=== PATIENT | male | born 1970 | race Caucasian/White ===

== ENCOUNTER 2016-10-08 16:48 | Inpatient (IN) | payer OTHER ==
[2016-10-08 19:12] VITALS: BMI 19.5
--- NOTE | 2016-10-08 23:36 | HP ---
COWS - Scale Resting Pulse: 0= [place] 80 or Below Sweatin= Chills/Flushing Restless Observation: 3= Extraneous Movement Pupil Size: 0= Normal to Room Light Bone or Joint Aches: 2= Severe Diffuse Aches Runny Nose/ Eye Tearin= Runny Nose/Eyes GI Upset > 30mins: 1= Stomach Cramp Tremor Observation: 2= Slight Tremor Visible Yawning Observation: 1= 1-2x During Session Anxiety or Irritability: 2=Irritable/Anxious Goose Flesh Skin: 3=Piloerection COWS Score: 17 Admission ROS S - HPI Chief Complaint: WITHDRAWAL SYMPTOMS Allergies/Adverse Reactions: Allergies Allergy/AdvReac Type Severity Reaction Status Date / Time No Known Allergies Allergy Verified 10/08/16 23:33 History of Present Illness: 46 Y.O. MAN WITH A 10 YEAR HISTORY OF DRUG DEPENDENCE IS SEEKING DETOX. HE REPORTS HE HAS NEVER SOUGHT TREATMENT AND HIS ONLY PERIOD OF SOBRIETY WAS FOR 2 YEARS WHEN HE WAS INCARCERATED. Exam Limitations: No Limitations - Ebola screening Have you traveled outside of the country in the last 21 days: No Have you had contact with anyone from an Ebola affected area: No Have you been sick,other than usual withdrawal symptoms: No Do you have a fever: No - Review of Systems Constitutional: Loss of Appetite, Night Sweats, Changes in sleep, Unintentional Wgt. Loss EENT: reports: Blurred Vision, Double Vision, Nose Congestion Respiratory: reports: No Symptoms reported Cardiac: reports: No Symptoms Reported GI: reports: Constipated, Poor Appetite : reports: No Symptoms Reported Musculoskeletal: reports: Back Pain, Muscle Pain, Muscle Weakness Integumentary: reports: Other (SURGICAL SCAR TO MIDLINE BACK) Neuro: reports: Numbness, Tingling, Tremors Endocrine: reports: No Symptoms Reported Hematology: reports: No Symptoms Reported Psychiatric: reports: Orientated x3 Other Systems: Reviewed and Negative Patient History - Patient Medical History Hx Anemia: No Hx Asthma: No Hx Chronic Obstructive Pulmonary Disease (COPD): No Hx Cancer: No Hx Cardiac Disorders: No Hx Congestive Heart Failure: No Hx Hypertension: No Hx Hypercholesterolemia: No Hx Pacemaker: No HX Cerebrovascular Accident: No Hx Seizures: No Hx Dementia: No Hx Diabetes: No Hx Gastrointestinal Disorders: No Hx Liver Disease: No Hx Genitourinary Disorders: No Hx Sexually Transmitted Disorders: No Hx Renal Disease (ESRD): No Hx Thyroid Disease: No Hx Human Immunodeficiency Virus (HIV): Yes (NOT ON MEDS ) Hx Hepatitis C: Yes (COMPLETED [place] ) Hx Depression: No Hx Suicide Attempt: No Hx Bipolar Disorder: No Hx Schizophrenia: No - Patient Surgical History Past Surgical History: Yes Hx Neurologic Surgery: No Hx Cataract Extraction: No Hx Cardiac Surgery: No Hx Lung Surgery: No Hx Breast Surgery: No Hx Breast Biopsy: No Hx Abdominal Surgery: No Hx Appendectomy: No Hx Cholecystectomy: No Hx Genitourinary Surgery: No Hx Section: No Hx Orthopedic Surgery: Yes (RODS AND SCREWS TO LUMBAR SPINE) Hx Hysterectomy: No Anesthesia Reaction: No - PPD History Previous Implant?: Yes Documented Results: Negative w/o proof Implanted On Prior [facility] Admission?: No PPD to be Administered?: Yes - Reproductive History Patient is a Female of Child Bearing Age (11 -55 yrs old): No - Smoking Cessation Smoking history: Current every day smoker Have you smoked in the past 12 months: Yes Aproximately how many cigarettes per day: 40 Hx Chewing Tobacco Use: No Initiated information on smoking cessation: Yes 'Breaking Loose' booklet given: 10/08/16 - Substance & Tx. History Hx Alcohol Use: No Hx Substance Use: Yes Substance Use Type: Heroin Hx Substance Use Treatment: No - Substances Abused Heroin Route: Injection Frequency: Daily Amount used: 20 BAGS Age of first use: 34 Date of Last Use: 10/08/16 Family Disease History - Family Disease History Family Disease History: CA: Mother ( ) Admission Physical Exam BHS - Vital Signs Vital Signs: Vital Signs - 24 hr 10/08/16 19:10 Temperature 96.3 F L Pulse Rate 78 Respiratory 18 Rate Blood Pressure 111/63 - Physical General Appearance: Yes: Thin, Tremorous, Anxious HEENTM: Yes: Hearing grossly Normal, Normal ENT Inspection, Normocephalic, Normal Voice Respiratory: Yes: Chest Non-Tender, Lungs Clear, Normal Breath Sounds, No Respiratory Distress, No Accessory Muscle Use Neck: Yes: No masses,lesions,Nodules, Trachea in good position Breast: Yes: Breast Exam Deferred Cardiology: Yes: Regular Rhythm, Regular Rate, S1, S2 Abdominal: Yes: Normal Bowel Sounds, Non Tender, Flat, Soft Genitourinary: Yes: Within Normal Limits Back: Yes: Surgical Scar (MIDLINE BACK) Musculoskeletal: Yes: Back pain, Joint Stiffness, Joint swelling, Muscle Pain, Muscle weakness Extremities: Yes: Normal Inspection, Normal Range of Motion Neurological: Yes: Alert, Normal Mood/Affect, Normal Response Integumentary: Yes: Normal Color, Dry, Warm Lymphatic: Yes: Within Normal Limits - Diagnostic (1) Opioid dependence with withdrawal Current Visit: Yes Status: Chronic (2) HIV (human immunodeficiency virus infection) Current Visit: Yes Status: Chronic (3) Malnutrition Current Visit: Yes Status: Chronic Cleared for Admission [facility] - Detox or Rehab [facility] Level of Care: Medically Managed Detox Regimen/Protocol: Methadone [facility] Breath Alcohol Content Breath Alcohol Content: 0 Urine Drug Screen - Results Drug Screen Negative: No Urine Drug Screen Results: MEENA-Cocaine, OPI-Opiates
[2016-10-08] MEDS ORDERED: NICOTINE POLACRILEX 4 MG GUM BUC PRN (23:45)
[2016-10-08] MEDS ORDERED: MAG HYDROX/AL HYDROX/SIMETH 30 ML UNIT-DOSE CUP PO PRN (23:45)
[2016-10-08] MEDS ORDERED: IBUPROFEN 400 MG TABLET (FP) PO PRN (23:45)
[2016-10-08] MEDS ORDERED: hydrOXYzine PAMOATE 50 MG CAPSULE (FP) PO PRN (23:45)
[2016-10-08] MEDS ORDERED: MAGNESIUM CITRATE 300 ML BOTTLE PO PRN (23:45)
[2016-10-08] MEDS ORDERED: MAGNESIUM HYDROX 2400MG/30ML ORAL SUSPENSION 30 ML CUP PO PRN (23:45)
[2016-10-08] MEDS ORDERED: LOPERAMIDE HCL 2 MG CAPSULE PO PRN (23:45)
[2016-10-08] MEDS ORDERED: diphenhydrAMINE HCL 50 MG CAPSULE PO PRN (23:45)
[2016-10-08] MEDS ORDERED: ACETAMINOPHEN 325 MG TABLET (FP) PO PRN (23:45)
[2016-10-08] MEDS ORDERED: guaiFENesin/D-METHORPHAN HB 10 ML UNIT-DOSE CUPS PO PRN (23:45)
[2016-10-08] MEDS ORDERED: P-EPHED 60MG/TRIPROLIDI 2.5MG TABLET PO PRN (23:45)
[2016-10-08] MEDS ORDERED: MENTHOL/PHENOL 1 EACH UD MM PRN (23:45)
[2016-10-09] MEDS ORDERED: METHADONE HCL 10 MG TABLET (FOR DETOX USE ONLY) PO ONE ×3 (00:01→23:00)
[2016-10-09] MEDS: diazePAM 5 MG TABLET PO PRN ×2 (01:54→10:39)
[2016-10-09] MEDS: NICOTINE 21 MG/24 HOURS TOPICAL PATCH TD SCH (10:40)
[2016-10-09] MEDS: PRENATAL VITAMINS W/ FOLIC ACID TABLET (FP) PO SCH (10:40)
[2016-10-09 10:47] LABS: MCH 26.9 pg (25.7-33.7); MCHC 33.4 g/dl (32.0-35.9); MEAN CELL VOLUME 80.6 fl (80-96); MEAN PLT VOLUME 8.9 fl (7.5-11.1); PLATELET COUNT 162 K/MM3 (134-434); RDW 15.3 % (11.9-15.9); WHITE BLOOD COUNT 4.4 K/mm3 (4.0-10.0)
[2016-10-09 11:03] LABS: ALBUMIN 2.8 g/dl (3.4-5.0); ALK PHOS 66 U/L (45-117); ANION GAP 10 (8-16); BILIRUBIN,TOTAL 0.5 mg/dL (0.2-1.0); CALCIUM 8.7 mg/dL (8.5-10.1); CO2 28 mmol/L (21-32); CREATININE 0.7 mg/dL (0.7-1.3); GLUCOSE,RANDOM 92 mg/dL (74-106); SGOT/AST 24 U/L (15-37); SGPT/ALT 23 U/L (12-78); TOT PROT 6.9 g/dl (6.4-8.2)
--- NOTE | 2016-10-09 11:35 | PN ---
BHS COWS - Scale Resting Pulse: 1= [place] 81-100 Sweatin= Chills/Flushing Restless Observation: 1= Difficult to Sit Still Pupil Size: 1= Pupils >than Normal Bone or Joint Aches: 1= Mild Discomfort Runny Nose/ Eye Tearin= Nasal Congestion GI Upset > 30mins: 2= Nausea/Diarrhea Tremor Observation of Outstretched Hands: 2= Slight Tremor Visible Yawning Observation: 1= 1-2x During Session Anxiety or Irritability: 2=Irritable/Anxious Goose Flesh Skin: 3=Piloerection COWS Score: 16 BHS Progress Note (SOAP) Subjective: nasuea, sweats, interrupted sleep, anxiety, tremors Objective: 10/09/16 11:34 Vital Signs - 24 hr 10/08/16 10/09/16 19:10 03:30 Temperature 96.3 F L Pulse Rate 78 Respiratory 18 18 Rate Blood Pressure 111/63 Laboratory Tests 10/09/16 10/09/16 08:00 08:00 WBC 4.4 RBC 4.93 Hgb 13.3 Hct 39.7 MCV 80.6 MCHC 33.4 RDW 15.3 Plt Count 162 MPV 8.9 Sodium 140 Potassium 4.1 Chloride 102 Carbon Dioxide 28 Anion Gap 10 BUN 18 Creatinine 0.7 Creat Clearance w eGFR > 60 Random Glucose 92 Calcium 8.7 Total Bilirubin 0.5 AST 24 ALT 23 Alkaline Phosphatase 66 Total Protein 6.9 Albumin 2.8 L Assessment: 10/09/16 11:34 withdasia sx Plan: cont detox, fluids, encourage ambualtion
--- NOTE | 2016-10-09 14:39 | CONSULT ---
[facility] Psychiatric Consult - Data Date of interview: 10/09/16 Admission source: [facility] Identifying data: First admission to [facility] for this 46 y/o male seeking detox treatment on for heroin and cocaine dependence.Patient is single,a father of one,homeless,unemployed and supported on welfare. Substance Abuse History: - Smoking Cessation. Smoking history: Current every day smoker. Have you smoked in the past 12 months: Yes. Aproximately how many cigarettes per day: 40. Hx Chewing Tobacco Use: No. Initiated information on smoking cessation: Yes. 'Breaking Loose' booklet given: 10/08/16. - Substance & Tx. History. Hx Alcohol Use: No. Hx Substance Use: Yes. Substance Use Type : Heroin. Hx Substance Use Treatment: No. - Substances Abused. Heroin. Route: Injection. Frequency: Daily. Amount used: 20 BAGS. Age of first use: 34. Date of Last Use: 10/08/16. Confirmed by patient in this interview. Medical History: HIV infection,hepatitis C,spinal fusion and low back pain. Psychiatric History: Patient denies. Physical/Sexual Abuse/Trauma History: Patient denies. Additional Comment: Urine Drug Screen Results: MEENA-Cocaine, OPI-Opiates.Noted. Mental Status Exam - Mental Status Exam Alert and Oriented to: Time, Place, Person Cognitive Function: Grossly Intact Patient Appearance: Unkempt, Disheveled Mood: Withdrawn Affect: Mood Congruent Patient Behavior: Fatigued, Appropriate, Cooperative Speech Pattern: Clear Voice Loudness: Normal Thought Process: Goal Oriented Thought Disorder: Not Present Hallucinations: Denies Suicidal Ideation: Denies Homicidal Ideation: Denies Insight/Judgement: Poor Sleep: Fair Appetite: Poor, Weight loss Muscle strength/Tone: Normal Gait/Station: Normal Psychiatric Findings - Problem List ([place] 1, 2,3) (1) Opioid dependence with withdrawal Current Visit: Yes Status: Acute (2) Cocaine dependence Current Visit: Yes Status: Acute (3) Nicotine dependence Current Visit: Yes Status: Acute (4) HIV (human immunodeficiency virus infection) Current Visit: Yes Status: Chronic (5) Malnutrition Current Visit: Yes Status: Chronic - Initial Treatment Plan Initial Treatment Plan: Psychoeducation.Detoxification.Observation.
--- NOTE | 2016-10-09 18:20 | EKG ---
Test Reason : Blood Pressure : / mmHG Vent. Rate : 066 BPM Atrial Rate : 066 BPM P-R Int : 112 ms QRS Dur : 090 ms QT Int : 404 ms P-R-T Axes : 050 088 069 degrees QTc Int : 423 ms NORMAL SINUS RHYTHM WITH SHORT NH NO PREVIOUS ECGS AVAILABLE Confirmed by LATONIA PELAYO MD ([id number]) on 10/09/2016 6:20:00 PM Referred By: Jewel Nicole Confirmed By:LATONIA PLEAYO MD
[2016-10-09] MEDS: THIAMINE HCL 100 MG TABLET (FP) PO SCH (22:46)
[2016-10-10] MEDS: diazePAM 5 MG TABLET PO PRN ×2 (09:35→22:28)
[2016-10-10] MEDS: NICOTINE 21 MG/24 HOURS TOPICAL PATCH TD SCH (09:35)
[2016-10-10] MEDS: PRENATAL VITAMINS W/ FOLIC ACID TABLET (FP) PO SCH (09:35)
[2016-10-10] MEDS ORDERED: METHADONE HCL 10 MG TABLET (FOR DETOX USE ONLY) PO ONE (10:00)
[2016-10-10 13:43] LABS: URINE APPEARANCE CLEAR; URINE BILIRUBIN NEGATIVE (NEGATIVE); URINE COLOR LTYELLOW; URINE GLUCOSE (UA) NEGATIVE (NEGATIVE); URINE KETONE NEGATIVE (NEGATIVE); URINE LEUK ESTERASE NEGATIVE (NEGATIVE); URINE NITRITE NEGATIVE (NEGATIVE); URINE PROTEIN NEGATIVE (NEGATIVE); URINE UROBILINOGEN NEGATIVE E.U./dl (0.2-1.0)
[2016-10-10 13:50] LABS: URINE BLOOD 1+ (NEGATIVE)
[2016-10-10 13:55] LABS: URINE BACTERIA RARE /hpf (NONE SEEN); URINE MUCUS RARE; URINE RBC 2 /hpf (0-3); URINE WBC 1 /hpf (3-5)
--- NOTE | 2016-10-10 14:15 | PN ---
BHS COWS - Scale Resting Pulse: 0= [place] 80 or Below Sweatin= Chills/Flushing Restless Observation: 3= Extraneous Movement Pupil Size: 0= Normal to Room Light Bone or Joint Aches: 2= Severe Diffuse Aches Runny Nose/ Eye Tearin= Runny Nose/Eyes GI Upset > 30mins: 3= Vomiting/Diarrhea Tremor Observation of Outstretched Hands: 2= Slight Tremor Visible Yawning Observation: 0= None Anxiety or Irritability: 2=Irritable/Anxious Goose Flesh Skin: 0=Smooth Skin COWS Score: 15 BHS Progress Note (SOAP) Subjective: Sweating, interrupted sleep, nausea, diarrhea, chills, tremor Objective: 10/10/16 14:12 Last Vital Signs Temp Pulse Resp BP Pulse Ox 96.6 F L 102 H 18 119/74 10/10/16 09:35 10/10/16 09:35 10/10/16 09:35 10/10/16 09:35 Laboratory Tests 10/09/16 10/09/16 10/09/16 08:00 08:00 08:00 WBC 4.4 RBC 4.93 Hgb 13.3 Hct 39.7 MCV 80.6 MCHC 33.4 RDW 15.3 Plt Count 162 MPV 8.9 Sodium 140 Potassium 4.1 Chloride 102 Carbon Dioxide 28 Anion Gap 10 BUN 18 Creatinine 0.7 Creat Clearance w eGFR > 60 Random Glucose 92 Calcium 8.7 Total Bilirubin 0.5 AST 24 ALT 23 Alkaline Phosphatase 66 Total Protein 6.9 Albumin 2.8 L Urine Color Urine Appearance Urine pH Ur Specific [place] Urine Protein Urine Glucose (UA) Urine Ketones Urine Blood Urine Nitrite Urine Bilirubin Urine Urobilinogen Ur Leukocyte Esterase Urine RBC Urine WBC Urine Bacteria Urine Mucus RPR Titer Nonreactive 10/10/16 13:15 WBC RBC Hgb Hct MCV MCHC RDW Plt Count MPV Sodium Potassium Chloride Carbon Dioxide Anion Gap BUN Creatinine Creat Clearance w eGFR Random Glucose Calcium Total Bilirubin AST ALT Alkaline Phosphatase Total Protein Albumin Urine Color Ltyellow Urine Appearance Clear Urine pH 8.0 Ur Specific [place] 1.005 Urine Protein Negative Urine Glucose (UA) Negative Urine Ketones Negative Urine Blood 1+ H Urine Nitrite Negative Urine Bilirubin Negative Urine Urobilinogen Negative Ur Leukocyte Esterase Negative Urine RBC 2 Urine WBC 1 Urine Bacteria Rare Urine Mucus Rare RPR Titer Labs noted: UA 1+ blood, RBC 2 Assessment: 10/10/16 14:13 Withdrawal symptoms Noted with microscopic hematuria Plan: Continue detox, vistaril 50mg PO qhs prn sleep ordered as patient stated vistaril helps with interrupted sleep Microscopic hematuria: encouraged to drink lots of water, will repeat UA
[2016-10-10] MEDS ORDERED: hydrOXYzine PAMOATE 50 MG CAPSULE (FP) PO PRN (22:00)
[2016-10-10] MEDS ORDERED: hydrOXYzine HCL 25 MG TABLET (FP) PO PRN (22:00)
[2016-10-10] MEDS: THIAMINE HCL 100 MG TABLET (FP) PO SCH (22:29)
[2016-10-11] MEDS: diazePAM 5 MG TABLET PO PRN ×4 (05:55→22:38)
[2016-10-11] MEDS ORDERED: METHADONE HCL 5 MG TABLET (FOR DETOX USE ONLY) PO ONE (10:00)
[2016-10-11] MEDS: PRENATAL VITAMINS W/ FOLIC ACID TABLET (FP) PO SCH (10:24)
[2016-10-11] MEDS: NICOTINE 21 MG/24 HOURS TOPICAL PATCH TD SCH (10:47)
--- NOTE | 2016-10-11 13:56 | PN ---
BHS Progress Note (SOAP) Subjective: Tremors, Interrupted sleep, Body Aches, Stomach cramping, Vomiting, Sweating. Objective: PT. A & O X 3, OBSERVED AMBULATING ON UNIT. 10/11/16 13:54 Vital Signs Temperature 96.9 F L 10/11/16 13:22 Pulse Rate 100 H 10/11/16 13:22 Respiratory Rate 20 10/11/16 13:22 Blood Pressure 102/67 10/11/16 13:22 O2 Sat by Pulse Oximetry (%) Laboratory Last Values WBC 4.4 K/mm3 (4.0-10.0) 10/09/16 08:00 RBC 4.93 M/mm3 (4.00-5.60) 10/09/16 08:00 Hgb 13.3 GM/dL (11.7-16.9) 10/09/16 08:00 Hct 39.7 % (35.4-49) 10/09/16 08:00 MCV 80.6 fl (80-96) 10/09/16 08:00 MCHC 33.4 g/dl (32.0-35.9) 10/09/16 08:00 RDW 15.3 % (11.9-15.9) 10/09/16 08:00 Plt Count 162 K/MM3 (134-434) 10/09/16 08:00 MPV 8.9 fl (7.5-11.1) 10/09/16 08:00 Sodium 140 mmol/L (136-145) 10/09/16 08:00 Potassium 4.1 mmol/L (3.5-5.1) 10/09/16 08:00 Chloride 102 mmol/L (98-107) 10/09/16 08:00 Carbon Dioxide 28 mmol/L (21-32) 10/09/16 08:00 Anion Gap 10 (8-16) 10/09/16 08:00 BUN 18 mg/dL (7-18) 10/09/16 08:00 Creatinine 0.7 mg/dL (0.7-1.3) 10/09/16 08:00 Creat Clearance w eGFR > 60 (>60) 10/09/16 08:00 Random Glucose 92 mg/dL (74-106) 10/09/16 08:00 Calcium 8.7 mg/dL (8.5-10.1) 10/09/16 08:00 Total Bilirubin 0.5 mg/dL (0.2-1.0) 10/09/16 08:00 AST 24 U/L (15-37) 10/09/16 08:00 ALT 23 U/L (12-78) 10/09/16 08:00 Alkaline Phosphatase 66 U/L (45-117) 10/09/16 08:00 Total Protein 6.9 g/dl (6.4-8.2) 10/09/16 08:00 Albumin 2.8 g/dl (3.4-5.0) L 10/09/16 08:00 Urine Color Ltyellow 10/10/16 13:15 Urine Appearance Clear 10/10/16 13:15 Urine pH 8.0 (5.0-8.0) 10/10/16 13:15 Ur Specific [place] 1.005 (1.001-1.035) 10/10/16 13:15 Urine Protein Negative (NEGATIVE) 10/10/16 13:15 Urine Glucose (UA) Negative (NEGATIVE) 10/10/16 13:15 Urine Ketones Negative (NEGATIVE) 10/10/16 13:15 Urine Blood 1+ (NEGATIVE) H 10/10/16 13:15 Urine Nitrite Negative (NEGATIVE) 10/10/16 13:15 Urine Bilirubin Negative (NEGATIVE) 10/10/16 13:15 Urine Urobilinogen Negative E.U./dl (0.2-1.0) 10/10/16 13:15 Ur Leukocyte Esterase Negative (NEGATIVE) 10/10/16 13:15 Urine RBC 2 /hpf (0-3) 10/10/16 13:15 Urine WBC 1 /hpf (3-5) 10/10/16 13:15 Urine Bacteria Rare /hpf (NONE SEEN) 10/10/16 13:15 Urine Mucus Rare 10/10/16 13:15 RPR Titer Nonreactive (NONREACTIVE) 10/09/16 08:00 LABS NOTED. Assessment: 10/11/16 13:55 WITHDRAWAL SYMPTOMS. Plan: CONTINUE DETOX.
[2016-10-11 14:22] LABS: URINE APPEARANCE CLEAR; URINE BILIRUBIN NEGATIVE (NEGATIVE); URINE COLOR YELLOW; URINE GLUCOSE (UA) NEGATIVE (NEGATIVE); URINE KETONE NEGATIVE (NEGATIVE); URINE LEUK ESTERASE NEGATIVE (NEGATIVE); URINE NITRITE NEGATIVE (NEGATIVE); URINE PROTEIN NEGATIVE (NEGATIVE); URINE UROBILINOGEN NEGATIVE E.U./dl (0.2-1.0)
[2016-10-11 14:24] LABS: URINE BLOOD 1+ (NEGATIVE)
[2016-10-11 14:41] LABS: CALCIUM OXALATE CRYSTALS MODERATE /hpf (NONE SEEN); URINE MUCUS RARE; URINE RBC <1 /hpf (0-3); URINE WBC 1 /hpf (3-5)
[2016-10-11] MEDS: THIAMINE HCL 100 MG TABLET (FP) PO SCH (22:37)
[2016-10-12] MEDS ORDERED: METHADONE HCL 5 MG TABLET (FOR DETOX USE ONLY) PO ONE (10:00)
[2016-10-12] MEDS: NICOTINE 21 MG/24 HOURS TOPICAL PATCH TD SCH (10:38)
[2016-10-12] MEDS: PRENATAL VITAMINS W/ FOLIC ACID TABLET (FP) PO SCH (10:38)
--- NOTE | 2016-10-12 11:42 | PN ---
BHS Progress Note (SOAP) Subjective: SWEATING,INTERRUPTED SLEEP,RESTLESS. Objective: 10/12/16 11:40 Vital Signs - 8 hr 10/12/16 10/12/16 10/12/16 03:45 06:38 09:53 Temperature 95.8 F L 96.4 F L Pulse Rate 96 H 111 H Respiratory 18 16 18 Rate Blood Pressure 101/63 101/69 Laboratory Tests 10/09/16 10/09/16 10/09/16 08:00 08:00 08:00 WBC 4.4 RBC 4.93 Hgb 13.3 Hct 39.7 MCV 80.6 MCHC 33.4 RDW 15.3 Plt Count 162 MPV 8.9 Sodium 140 Potassium 4.1 Chloride 102 Carbon Dioxide 28 Anion Gap 10 BUN 18 Creatinine 0.7 Creat Clearance w eGFR > 60 Random Glucose 92 Calcium 8.7 Total Bilirubin 0.5 AST 24 ALT 23 Alkaline Phosphatase 66 Total Protein 6.9 Albumin 2.8 L Urine Color Urine Appearance Urine pH Ur Specific [place] Urine Protein Urine Glucose (UA) Urine Ketones Urine Blood Urine Nitrite Urine Bilirubin Urine Urobilinogen Ur Leukocyte Esterase Urine RBC Urine WBC Calcium [place] Urine Bacteria Urine Mucus RPR Titer Nonreactive 10/10/16 10/11/16 13:15 09:40 WBC RBC Hgb Hct MCV MCHC RDW Plt Count MPV Sodium Potassium Chloride Carbon Dioxide Anion Gap BUN Creatinine Creat Clearance w eGFR Random Glucose Calcium Total Bilirubin AST ALT Alkaline Phosphatase Total Protein Albumin Urine Color Ltyellow Yellow Urine Appearance Clear Clear Urine pH 8.0 5.0 D Ur Specific [place] 1.005 1.013 Urine Protein Negative Negative Urine Glucose (UA) Negative Negative Urine Ketones Negative Negative Urine Blood 1+ H 1+ H Urine Nitrite Negative Negative Urine Bilirubin Negative Negative Urine Urobilinogen Negative Negative Ur Leukocyte Esterase Negative Negative Urine RBC 2 <1 Urine WBC 1 1 Calcium [place] Moderate Urine Bacteria Rare Urine Mucus Rare Rare RPR Titer LABS NOTED Assessment: 10/12/16 11:41 WITHDRAWAL SX. Plan: CONTINUE DETOX
[2016-10-12] MEDS: THIAMINE HCL 100 MG TABLET (FP) PO SCH (22:34)
[2016-10-13 06:30] VITALS: BP 109/66; PULSE 95; TEMP 96.1
[2016-10-13] MEDS ORDERED: METHADONE HCL 10 MG TABLET (FOR DETOX USE ONLY) PO ONE (10:00)
--- NOTE | 2016-10-13 18:17 | DS ---
[facility] Detox Discharge Summary Admission Date: 10/08/16 Discharge Date: 10/13/16 - History Present History: Cocaine Dependence, Opioid Dependence Pertinent Past History: HIV INFECTION - Physical Exam Results Vital Signs: Vital Signs Temperature 96.1 F L 10/13/16 06:30 Pulse Rate 95 H 10/13/16 06:30 Respiratory Rate 16 10/13/16 06:30 Blood Pressure 109/66 10/13/16 06:30 O2 Sat by Pulse Oximetry (%) Pertinent Admission Physical Exam Findings: WITHDRAWAL SX. Laboratory Tests 10/09/16 10/09/16 10/09/16 08:00 08:00 08:00 WBC 4.4 RBC 4.93 Hgb 13.3 Hct 39.7 MCV 80.6 MCHC 33.4 RDW 15.3 Plt Count 162 MPV 8.9 Sodium 140 Potassium 4.1 Chloride 102 Carbon Dioxide 28 Anion Gap 10 BUN 18 Creatinine 0.7 Creat Clearance w eGFR > 60 Random Glucose 92 Calcium 8.7 Total Bilirubin 0.5 AST 24 ALT 23 Alkaline Phosphatase 66 Total Protein 6.9 Albumin 2.8 L Urine Color Urine Appearance Urine pH Ur Specific [place] Urine Protein Urine Glucose (UA) Urine Ketones Urine Blood Urine Nitrite Urine Bilirubin Urine Urobilinogen Ur Leukocyte Esterase Urine RBC Urine WBC Calcium [place] Urine Bacteria Urine Mucus RPR Titer Nonreactive 10/10/16 10/11/16 13:15 09:40 WBC RBC Hgb Hct MCV MCHC RDW Plt Count MPV Sodium Potassium Chloride Carbon Dioxide Anion Gap BUN Creatinine Creat Clearance w eGFR Random Glucose Calcium Total Bilirubin AST ALT Alkaline Phosphatase Total Protein Albumin Urine Color Ltyellow Yellow Urine Appearance Clear Clear Urine pH 8.0 5.0 D Ur Specific [place] 1.005 1.013 Urine Protein Negative Negative Urine Glucose (UA) Negative Negative Urine Ketones Negative Negative Urine Blood 1+ H 1+ H Urine Nitrite Negative Negative Urine Bilirubin Negative Negative Urine Urobilinogen Negative Negative Ur Leukocyte Esterase Negative Negative Urine RBC 2 <1 Urine WBC 1 1 Calcium [place] Moderate Urine Bacteria Rare Urine Mucus Rare Rare RPR Titer LABS NOTED,ALBUMIN VERY LOW 2.8 IN SOMEONE WHO IS 6' 1" AND ONLY 148 LBS MEETS THE CRITERIA FOR MALNUTRITION. - Treatment Hospital Course: Detox Protocol Followed, Detoxed Safely, Responded well, Discharged Condition Good, Rehab Referral Accepted - Medication Discharge Medications: Ambulatory Orders NK [No Known Home Medication] 10/09/16 - Diagnosis (1) Cocaine dependence Status: Acute Qualifiers: Substance use status: uncomplicated Qualified Code(s): F14.20 - Cocaine dependence, uncomplicated (2) Nicotine dependence Status: Acute Qualifiers: Nicotine product type: cigarettes Substance use status: uncomplicated Qualified Code(s): F17.210 - Nicotine dependence, cigarettes, uncomplicated (3) Opioid dependence with withdrawal Status: Acute (4) HIV (human immunodeficiency virus infection) Status: Chronic (5) Malnutrition Status: Acute - AMA Did Patient Leave Against Medical Advice: No
[2016-10-14] MEDS ORDERED: METHADONE HCL 5 MG TABLET (FOR DETOX USE ONLY) PO ONE (06:00)
== END 2016-10-13 08:58 | disposition home or self-care (01) | DRG 773 ==
LOC: YASAS 16:48 → Y3N 22:10
PROVIDERS: ADMIT Internal Medicine; ATTEND Internal Medicine
PROC: HZ2ZZZZ Detoxification Services for Substance Abuse Treatment (ICD-10-PCS; principal; 2016-10-13)
DX: F11.23 Opioid dependence with withdrawal (principal); F14.20 Cocaine dependence, uncomplicated; F17.210 Nicotine dependence, cigarettes, uncomplicated; Z21 Asymptomatic human immunodeficiency virus [HIV] infection status; E46 Unspecified protein-calorie malnutrition; Z68.1 Body mass index [BMI] 19.9 or less, adult
CPT/HCPCS: 36415; 80053; 81003; 81015; 85027; 86593; 93005; 93010